=== PATIENT | male | born 1950 | race Caucasian/White ===

== ENCOUNTER 2017-01-31 10:00 | Outpatient (CLI) | payer MEDICARE ==
--- NOTE | 2017-01-31 11:57 | RAD ---
TWO VIEWS RIGHT HIP: INDICATION: Right hip pain without injury reported. FINDINGS: There is moderate osteoarthritis. There is a heterotopic density just lateral to the right hip jigar culation. Degenerative changes of the imaged sacroiliac joint and symphysis pubis present. IMPRESSION: No acute right hip fracture. Moderate osteoarthritis. POS: [facility]
== END 2017-01-31 10:01 | disposition home or self-care (01) ==
LOC: NAV RAD 10:00
PROVIDERS: ATTEND Nurse Practitioner Family
DX: M25.551 Pain in right hip (principal); M16.11 Unilateral primary osteoarthritis, right hip

== ENCOUNTER 2019-03-23 10:27 | Observation (INO) | payer MEDICARE ==
--- NOTE | 2019-03-23 10:56 | RAD ---
Exam: Chest 2 views HISTORY:Pain and cough Comparison: 10/28/2008 FINDINGS: Lungs: Focal patchy right lung base opacity is seen Cardiac silhouette: Normal size Pulmonary vessels: Normal Pleural Spaces: Clear Pneumothorax: None Osseous abnormalities: None of acuity. IMPRESSION: Focal right lung base opacity. Correlate for evidence of pneumonia. Follow-up to resoluti on is recommended.
[2019-03-23] MEDS ORDERED: Sodium Chloride 0.9% 2,000 ML ONE (11:01)
[2019-03-23] MEDS ORDERED: cefTRIAXone\\ROCEPHIN 2 GM VIAL ONE (11:01)
[2019-03-23] MEDS ORDERED: Acetaminophen 500 MG TAB ONE (11:01)
[2019-03-23] MEDS ORDERED: Sodium Chloride 0.9% 100 ML ONE (11:02)
[2019-03-23 11:11] LABS: %Lymphocytes 10.4 % (21.0-51.0); %Monocytes 5.9 % (0.0-10.0); %Neutrophils 82.7 % (42.0-75.0); Hemoglobin 13.2 g/dL (14.0-18.0); Mean Corpuscular HGB CONC 33.9 g/dL (32.0-36.0); Mean Corpuscular Hemoglobin 33.1 pg (27.0-31.0); Mean Corpuscular Volume 97.6 fL (78.0-98.0); Mean Platelet Volume 8.9 fL (7.4-10.4); Platelet Count 106 thou/uL (130-400); RBC Distribution Width 12.9 % (11.5-14.5); Red Blood Cell (RBC) Count 3.98 mill/uL (4.70-6.10); White Blood Cell (WBC) Count 12.5 thou/uL (4.8-10.8)
[2019-03-23 11:12] LABS: #Basophils 0.1 thou/uL (0.0-0.2); #Lymphocytes 1.3 thou/uL (1.20-3.40); #Monocytes 0.7 thou/uL (0.11-0.59); #Neutrophils 10.3 thou/uL (1.40-6.50); ALT (SGPT) 18 U/L (8-55); AST (SGOT) 18 U/L (5-34); Albumin 4.3 g/dL (3.4-4.8); Alkaline Phosphatase 52 U/L (40-110); Anion Gap 15 mmol/L (10-20); BUN (Urea Nitrogen) 19 mg/dL (8.4-25.7); Bilirubin, Total 0.5 mg/dL (0.2-1.2); Calc. Creatinine Clearance 0 mL/min (70-130); Calcium 8.7 mg/dL (7.8-10.44); Carbon Dioxide 19 mmol/L (23-31); Chloride 106 mmol/L (98-107); Estimated GFR-MDRD 62; Globulin 2.5 g/dL (2.4-3.5); Glucose 121 mg/dL (80-115); Lipase 10 U/L (8-78); Potassium 3.6 mmol/L (3.5-5.1); Protein, Total 6.8 g/dL (5.8-8.1); Sodium 136 mmol/L (136-145)
[2019-03-23] MEDS ORDERED: Azithromycin 500 MG VIAL ONE (11:45)
[2019-03-23] MEDS ORDERED: Sodium Chloride 0.9% 250 ML 250 ML ONE (11:46)
[2019-03-23] MEDS ORDERED: Ondansetron ODT 4 MG TAB PO PRN (12:42)
[2019-03-23 12:58] VITALS: BMI 32.8
[2019-03-23 13:08] LABS: Differential Comment SCANNED
[2019-03-23] MEDS ORDERED: Nicotine 21 MG PATCH TD SCH (14:00)
[2019-03-23] MEDS: Lactated Ringer's 1,000 ML IV SCH (16:17)
[2019-03-23] MEDS: Acetaminophen 325 MG TAB PO PRN ×2 (16:54→20:14)
[2019-03-23] MEDS ORDERED: Guaifenesin DM 100-10/5 ML UDCUP PO PRN (19:13)
--- NOTE | 2019-03-23 19:40 | HP ---
CHIEF COMPLAINT: Shortness of breath. HISTORY OF PRESENT ILLNESS: The patient is a 68-year-old male with a past medical history of COPD, seizure disorder, coronary artery disease, hyperlipidemia, and hypertension, who presented to the ER with right-sided chest and rib pain, dizziness, chills, productive cough, and wheezing that began overnight. The patient states he has been coughing for quite some time and always does. He does smoke two packs of cigarettes a day and has done so for 50 years. The patient has had increased wheezing. He does have inhalers at home but has not been using them. Upon arrival to the ER, he had a temp of a 104, and after some Tylenol, it was down to 100.8. The patient was initially hypotensive with systolics in the low 90s on arrival. His blood pressure did respond to fluid boluses. He is not currently requiring oxygen and breathing is better with neb treatments. PAST MEDICAL HISTORY: 1. COPD. 2. Seizure disorder. 3. Hyperlipidemia. 4. Coronary artery disease. 5. Hypertension. PAST SURGICAL HISTORY: 1. Appendectomy. 2. Tonsillectomy. 3. Angioplasty in 2007. 4. Knee surgery. ALLERGIES: NO KNOWN DRUG ALLERGIES. FAMILY HISTORY: 1. Grandfather with stomach cancer. 2. Mom, heart disease and pulmonary fibrosis. 3. A sibling with heart failure. SOCIAL HISTORY: The patient smokes 2packs per day and has done so for at least 50 years. He denies alcohol and other drug use. REVIEW OF SYSTEMS: GENERAL: Positive for fever, chills. EYES: Negative for vision changes or eye pain. HEENT: Negative for sore throat, rhinorrhea, or nasal congestion. RESPIRATORY: Positive for cough, shortness of breath and wheezing. CARDIOVASCULAR: Positive for right-sided chest pain that is worse with inspiration, negative for palpitations and PND. GI: Negative for nausea, vomiting, diarrhea, or constipation. : Negative for dysuria, polyuria. MUSCULOSKELETAL: Negative for new joint pain or swelling. NEUROLOGIC: Negative for syncope or recent seizure. PSYCHIATRIC: Negative for anxiety or depression. PHYSICAL EXAMINATION: VITALS SIGNS: Blood pressure is 105/59, pulse 87, respiration rate 21, O2 saturation 96% on room air. Temp 100.8. GENERAL: The patient is awake, alert, and oriented, in no acute distress. EYES: Pupils are equal, round, reactive to light and accommodation, extraocular muscles intact. HEENT: Oropharynx and nasopharynx without erythema or exudate. NECK: Supple without lymphadenopathy, thyromegaly or bruits. CARDIOVASCULAR: Regular rate and rhythm without murmurs, gallops, or rubs. LUNGS: Have diffuse wheezing in all lung chris with normal effort and no retractions. ABDOMEN: Soft, nontender to palpation with normoactive bowel sounds. MUSCULOSKELETAL: The patient has full range of motion of all extremities. Muscle strength is 5/5. NEUROLOGIC: Cranial nerves 2 through 12 are grossly intact, deep tendon reflex is 2/4. Sensation is within normal limits. PSYCHIATRIC: The patient displays appropriate mood and affect. SKIN: There are no rashes, lesions, or jaundice noted. LABORATORY DATA: 1. CBC: WBC is 12.5, hemoglobin 13.2, hematocrit 38.9, platelet count 106, neutrophils 82.7. 2. CMP: Sodium 136, potassium 3.6, chloride 106, bicarb 19, BUN 19, creatinine 1.18, glucose 121, calcium 8.7, total bilirubin 0.5, AST 18, ALT 18, alkaline phosphatase 52, total protein 6.8. 3. Troponin 0.026. 4. Lipase 10. 5. Lactic acid 1.3. 6. Influenza negative. Imaging: Chest x-ray shows right lower lobe pneumonia. ASSESSMENT AND PLAN: 1. Sepsis secondary to right lower lobe pneumonia: The patient will continue on Rocephin and azithromycin. We will add a procalcitonin and trend his white count tomorrow with a CBC. 2. Chronic obstructive pulmonary disease exacerbation: We will also give the patient steroids and scheduled nebs. He is not currently requiring oxygen. 3. Seizure disorder: Continue home medications. 4. Dehydration: The patient's blood pressure is improved with intravenous fluids. We will push oral hydration at this point. 5. Hyperlipidemia: Continue statin. 6. Deep venous thrombosis prophylaxis with Lovenox. Job ID: [id number]
[2019-03-23] MEDS: predniSONE 20 MG TAB PO SCH (20:14)
[2019-03-23] MEDS: guaiFENesin 100 MG/5 ML UDCUP PO SCH ×2 (20:14→23:32)
[2019-03-23] MEDS: carBAMazepine 200 MG TAB PO SCH (20:14)
[2019-03-24] MEDS: Lactated Ringer's 1,000 ML IV SCH (02:31)
[2019-03-24] MEDS: guaiFENesin 100 MG/5 ML UDCUP PO SCH ×2 (03:59→09:01)
[2019-03-24 05:28] LABS: Band 12 % (5-11); Hemoglobin 10.9 g/dL (14.0-18.0); Lymphocytes 24 % (21-51); MDiff Complete? YES; Mean Corpuscular HGB CONC 32.7 g/dL (32.0-36.0); Mean Corpuscular Hemoglobin 32.6 pg (27.0-31.0); Mean Corpuscular Volume 99.8 fL (78.0-98.0); Mean Platelet Volume 8.5 fL (7.4-10.4); Monocytes 4 % (0-10); Neutrophil 60 % (42-75); Platelet Count 86 thou/uL (130-400); Platelet Morphology Comment Appears Decreased; RBC Distribution Width 13.2 % (11.5-14.5); RBC Morphology Normal; Red Blood Cell (RBC) Count 3.34 mill/uL (4.70-6.10); White Blood Cell (WBC) Count 13.1 thou/uL (4.8-10.8)
[2019-03-24 05:38] LABS: Anion Gap 13 mmol/L (10-20); BUN (Urea Nitrogen) 17 mg/dL (8.4-25.7); Calc. Creatinine Clearance 71 mL/min (70-130); Calcium 7.9 mg/dL (7.8-10.44); Carbon Dioxide 22 mmol/L (23-31); Chloride 104 mmol/L (98-107); Estimated GFR-MDRD 66; Glucose 127 mg/dL (80-115); Sodium 135 mmol/L (136-145)
[2019-03-24] MEDS ORDERED: Albuterol Sulfate 2.5 mg/3 ml Neb IPPB PRN (07:51)
[2019-03-24] MEDS ORDERED: Ventolin HFA Inhaler 60 PUFF INHALER INH PRN (07:53)
[2019-03-24] MEDS ORDERED: Ezetimibe 10 MG TAB PO SCH (09:00)
[2019-03-24] MEDS ORDERED: cefTRIAXone\\ROCEPHIN 1 GM in Sodium Chloride 0.9% 100 ML IVPB SCH ×2 (09:00→11:00)
[2019-03-24] MEDS ORDERED: Atorvastatin Calcium 40 MG TAB PO SCH (09:00)
[2019-03-24] MEDS ORDERED: Aspirin 81 mg Enteric Coated Tablet PO SCH (09:00)
[2019-03-24] MEDS: Acetaminophen 325 MG TAB PO PRN (09:02)
[2019-03-24] MEDS: carBAMazepine 200 MG TAB PO SCH (09:02)
[2019-03-24] MEDS: predniSONE 20 MG TAB PO SCH (09:02)
[2019-03-24] MEDS: Enoxaparin Sodium 40 MG/0.4 ML SYRINGE SC SCH ×2 (09:05→09:07)
[2019-03-24] MEDS ORDERED: Sodium Chloride 0.9% 40 ML ONE (09:51)
[2019-03-24 09:54] VITALS: BP 123/53; TEMP 96.8
[2019-03-24] MEDS ORDERED: Azithromycin 500 MG in Sodium Chloride 0.9% 250 ML 250 ML IVPB SCH (12:00)
[2019-03-24] MEDS ORDERED: FLU VACC QS2019-20(6MOS UP)/PF 60 MCG/0.5 ML SYRINGE IM ONE (13:15)
--- NOTE | 2019-03-24 13:59 | DIS ---
DATE OF ADMISSION: 03/23/2019 DATE OF DISCHARGE: 03/24/2019 DISCHARGE DIAGNOSES: 1. Community-acquired pneumonia. 2. Dehydration. 3. Chronic obstructive pulmonary disease exacerbation. 4. Hyperlipidemia. 5. Coronary artery disease. 6. Seizure disorder. DISCHARGE MEDICATIONS: 1. Ventolin HFA 2 puffs q.4 hours p.r.n. shortness of breath, wheezing, and cough. 2. Aspirin 81 mg p.o. daily. 3. Lipitor 40 mg p.o. daily. 4. Azithromycin 250 mg p.o. daily for the next 4 days. 5. Carbamazepine 600 mg p.o. b.i.d. 6. Zetia 10 mg p.o. daily. 7. Robitussin 200 mg p.o. q.4 hours. 8. Zonisamide 300 mg p.o. daily. 9. Prednisone 20 mg p.o. b.i.d. HOSPITAL COURSE: The patient is a 68-year-old male, who was admitted for community-acquired pneumonia. He has been treated with Rocephin and azithromycin. White count remained relatively stable overnight. He is afebrile, and his blood pressure has improved. He was initially hypotensive in the ER, but this resolved with IV fluids. The patient has had significant coughing and does have rib pain near the area where his pneumonia is. The patient's O2 saturations have been stable, and he is not requiring oxygen. The patient is requesting to go home with close outpatient followup. DISPOSITION: The patient will be discharged home in stable condition. DIET: Heart-healthy. ACTIVITY: Ad selin. FOLLOWUP: The patient will follow up with me in clinic on March 26, at 12:40 p.m. The patient was given warning signs to return to the hospital. Job ID: [id number]
== END 2019-03-24 11:51 | disposition home or self-care (01) ==
LOC: NAV ERS 10:27 → NAV ACUTE 12:26
PROVIDERS: ADMIT Family Medicine; ATTEND Family Medicine
DX: A41.9 Sepsis, unspecified organism (principal); J44.0 Chronic obstructive pulmonary disease with (acute) lower respiratory infection; J18.9 Pneumonia, unspecified organism; J44.1 Chronic obstructive pulmonary disease with (acute) exacerbation; G40.909 Epilepsy, unspecified, not intractable, without status epilepticus; I25.10 Atherosclerotic heart disease of native coronary artery without angina pectoris; I10 Essential (primary) hypertension; F17.210 Nicotine dependence, cigarettes, uncomplicated; E86.0 Dehydration; E78.5 Hyperlipidemia, unspecified; Z79.899 Other long term (current) drug therapy
CPT/HCPCS: 36415; 71046; 80048; 80053; 83605; 83690; 84145; 84484; 85025; 87040; 87804; 93005; 94640; 96361; 96365; 96366; 96367; G0378; J0456; J0696; J1650; J3490; J7050; J7120; J7512; J7620; Q0162

== ENCOUNTER 2019-03-27 14:15 | Emergency (ER) | payer MEDICARE ==
[2019-03-27] MEDS ORDERED: Adenosine 6 MG/2 ML VIAL ONE (14:24)
[2019-03-27] MEDS ORDERED: Fentanyl 100 MCG/2 ML VIAL ONE (14:44)
[2019-03-27 14:46] LABS: #Basophils 0.1 thou/uL (0.0-0.2); #Lymphocytes 2.2 thou/uL (1.20-3.40); #Monocytes 0.5 thou/uL (0.11-0.59); #Neutrophils 4.5 thou/uL (1.40-6.50); %Basophils 1.5 % (0.0-1.0); %Eosinophils 0.6 % (0.0-10.0); %Lymphocytes 30.7 % (21.0-51.0); %Monocytes 6.1 % (0.0-10.0); Hemoglobin 12.3 g/dL (14.0-18.0); Mean Corpuscular HGB CONC 32.2 g/dL (32.0-36.0); Mean Corpuscular Hemoglobin 32.1 pg (27.0-31.0); Mean Corpuscular Volume 99.7 fL (78.0-98.0); Mean Platelet Volume 7.6 fL (7.4-10.4); Platelet Count 120 thou/uL (130-400); RBC Distribution Width 12.8 % (11.5-14.5); Red Blood Cell (RBC) Count 3.83 mill/uL (4.70-6.10); White Blood Cell (WBC) Count 7.3 thou/uL (4.8-10.8)
[2019-03-27] MEDS ORDERED: Ondansetron PF 4 MG/2 ML Vial ONE (14:46)
--- NOTE | 2019-03-27 14:55 | RAD ---
EXAM: Single view of the chest HISTORY: Chest pain and shortness of breath COMPARISON: 03/23/2019 FINDINGS: Single view of the chest shows an enlarged cardiomediastinal silhouette. Opacity seen in t he right lung base which may represent a pleural effusion and/or adjacent infiltrate. Degenerative changes are seen in the spine. IMPRESSION: 1. Cardiomegaly 2. Right pleural effusion versus right lower lobe infiltrate.
[2019-03-27] MEDS ORDERED: Heparin 5,000 UNITS/ML VIAL ONE (14:58)
[2019-03-27 15:07] LABS: ALT (SGPT) 476 U/L (8-55); AST (SGOT) 362 U/L (5-34); Alkaline Phosphatase 52 U/L (40-110); Anion Gap 20 mmol/L (10-20); BUN (Urea Nitrogen) 27 mg/dL (8.4-25.7); Bilirubin, Total 0.5 mg/dL (0.2-1.2); CK (CPK) 88 U/L (30-200); Calc. Creatinine Clearance 0 mL/min (70-130); Calcium 8.4 mg/dL (7.8-10.44); Carbon Dioxide 16 mmol/L (23-31); Chloride 104 mmol/L (98-107); Estimated GFR-MDRD 65; Globulin 2.7 g/dL (2.4-3.5); Glucose 140 mg/dL (80-115); Potassium 4.4 mmol/L (3.5-5.1); Protein, Total 6.7 g/dL (5.8-8.1); Sodium 136 mmol/L (136-145)
[2019-03-27] MEDS ORDERED: Diltiazem 125 MG/25 ML ONE (15:07)
[2019-03-27] MEDS ORDERED: cefTRIAXone\\ROCEPHIN 2 GM VIAL ONE (15:15)
[2019-03-27] MEDS ORDERED: Sodium Chloride 0.9% 100 ML ONE (15:15)
[2019-03-27] MEDS ORDERED: Aspirin Chewable 81 MG TAB ONE (15:17)
[2019-03-27 15:25] LABS: INR-International Normal Ratio 1.3; PTT 25.8 SEC (22.9-36.1); Prothrombin Time 15.7 SEC (12.0-14.7)
[2019-03-27 15:39] LABS: CKMB 8.1 ng/mL (0-6.6)
== END 2019-03-27 15:39 | disposition short-term general hospital (02) ==
LOC: NAV ERS 14:15
DX: I47.1 Supraventricular tachycardia (principal); I48.91 Unspecified atrial fibrillation; R79.89 Other specified abnormal findings of blood chemistry; R74.0 Nonspecific elevation of levels of transaminase and lactic acid dehydrogenase [LDH]; I10 Essential (primary) hypertension; J44.9 Chronic obstructive pulmonary disease, unspecified; E78.2 Mixed hyperlipidemia; F17.210 Nicotine dependence, cigarettes, uncomplicated; Z79.82 Long term (current) use of aspirin; Z79.899 Other long term (current) drug therapy
CPT/HCPCS: 71045; 80053; 82550; 82553; 83605; 83735; 83880; 84484; 85025; 85379; 85610; 85730; 87040; 93005; 94760; 96361; 96374; 96375; 96376; J0153; J0696; J1644; J2405; J3010; J3490

== ENCOUNTER 2019-04-09 14:18 | Emergency (ER) | payer MEDICARE ==
[~2019-04-09 14:18] MED LIST: Iopamidol 370 76% 100 ML VIAL ONE
--- NOTE | 2019-04-09 14:41 | CT ---
CT Brain WO Con: 04/09/2019 2:28 PM CLINICAL HISTORY: Fall with history of dysarthria; stroke protocol. IMAGING TECHNIQUE: Multiple CT images were obtained of the brain without IV contrast. COMPARISON: None. FINDINGS: Brain: No acute infarct or hemorrhage is evident. No midline shift. Ventricles: Normal. No hydrocephalus.. Skull: Intact.. Visualized Paranasal sinuses: There is complete opacification of the right maxillary sinusitis with t hickening of the right maxillary sinus titus. There is mucosal thickening right ethmoid air cells.. Mastoid air cells:There is a partial effusion of the right mastoid air cells. Left mastoid air cells are clear. Extracranial soft tissues:Normal. IMPRESSION: No acute intracranial abnormality. Findings called to Dr. Meadows at 2:35 PM on April 09, 2019. Chronic right maxillary sinusitis. Partial right mastoid air cell effusion.
[2019-04-09 14:50] LABS: #Basophils 0.1 thou/uL (0.0-0.2); #Eosinphils 0.1 thou/uL (0.0-0.7); #Monocytes 0.4 thou/uL (0.11-0.59); %Basophils 1.9 % (0.0-1.0); %Eosinophils 1.9 % (0.0-10.0); %Lymphocytes 44.4 % (21.0-51.0); %Monocytes 8.7 % (0.0-10.0); %Neutrophils 43.1 % (42.0-75.0); Hemoglobin 11.3 g/dL (14.0-18.0); Mean Corpuscular HGB CONC 32.4 g/dL (32.0-36.0); Mean Corpuscular Hemoglobin 31.6 pg (27.0-31.0); Mean Corpuscular Volume 97.7 fL (78.0-98.0); Mean Platelet Volume 7.8 fL (7.4-10.4); Platelet Count 154 thou/uL (130-400); Red Blood Cell (RBC) Count 3.57 mill/uL (4.70-6.10); White Blood Cell (WBC) Count 4.6 thou/uL (4.8-10.8)
[2019-04-09 14:52] LABS: INR-International Normal Ratio 1.2; PTT 30.2 SEC (22.9-36.1); Prothrombin Time 15.6 SEC (12.0-14.7)
[2019-04-09 15:01] LABS: ALT (SGPT) 84 U/L (8-55); AST (SGOT) 31 U/L (5-34); Albumin 3.6 g/dL (3.4-4.8); Alkaline Phosphatase 64 U/L (40-110); Anion Gap 15 mmol/L (10-20); BUN (Urea Nitrogen) 9 mg/dL (8.4-25.7); Bilirubin, Total 0.2 mg/dL (0.2-1.2); Calc. Creatinine Clearance 0 mL/min (70-130); Calcium 8.4 mg/dL (7.8-10.44); Carbon Dioxide 24 mmol/L (23-31); Chloride 101 mmol/L (98-107); Estimated GFR-MDRD 64; Globulin 3.4 g/dL (2.4-3.5); Glucose 95 mg/dL (80-115); Potassium 3.8 mmol/L (3.5-5.1); Sodium 136 mmol/L (136-145)
[2019-04-09 15:03] LABS: CKMB 1.9 ng/mL (0-6.6); Troponin I 0.017 ng/mL (< 0.028)
[2019-04-09] MEDS ORDERED: Meclizine HCl 25 MG TAB ONE (15:28)
--- NOTE | 2019-04-09 16:13 | CT ---
CTA OF THE HEAD AND SOFT TISSUE NECK CT: INDICATION: Stroke. COMPARISON: None. TECHNIQUE: CT angiogram of the head and neck are performed in the axial plane. Three-dimensional reformatted richie ges are submitted for interpretation. FINDINGS: CTA OF THE HEAD WITH AND WITHOUT CONTRAST: POSTCONTRAST CT OF BRAIN: Pathologic enhancement: No pathologic enhancement the brain. Postcontrast soft tissue neck CT: Sinuses: Opacification of the right maxillary sinus and partial opacification of the right ethmoid ai r cells. Orbits: Bilateral ocular lenses are appropriately located. Both globes are intact. Retrobulbar fat is preserved. Symmetric attenuation the optic nerves and ocular rectus muscles. Salivary glands:Symmetric attenuation of the parotid and submandibular glands. Thyroid gland: Grossly unremarkable. Lymph nodes: No evidence of lymphadenopathy by size criteria. Paraspinal muscles: Symmetric attenuation of the sternocleidomastoid muscles. Appropriate attenuation of the paraspinal muscles. Cervical spine:Vertebral body height is maintained. No fracture. Grade 1 anterolisthesis of C4 upon C 5. Multilevel significant central canal stenosis and significant neural foraminal narrowing. Limited evaluation by technique. Upper mediastinum and lung apices: Chronic changes of the lung parenchyma are suspected. Unremarkable upper mediastinum. CTA OF THE NECK WITH CONTRAST: Aorta: Appropriate enhancement and luminal diameter of the aortic arch and descending thoracic aorta. Right carotid artery: Right carotid artery origin, common carotid artery, carotid bifurcation and int ernal carotid artery have appropriate enhancement and luminal diameter. Left carotid: Left carotid artery origin, common carotid artery, carotid bifurcation have appropriate enhancement and luminal diameter. There is short segment severe stenosis involving the proximal left internal carotid artery with a luminal diameter of approximately 2 mm. Questionable associated f ocal ulceration. Subclavian arteries:Patent and symmetric. Vertebral arteries:The left vertebral artery originates directly from the aorta. Vertebral arteries a re patent throughout their course in the neck. Dominant left vertebral artery. CTA OF THE BRAIN: Intracranial internal carotid arteries:Appropriate enhancement and luminal diameter. Atherosclerosis without significant narrowing in both cavernous segments. Anterior circulation: Appropriate enhancement and luminal diameter of the A1 and M1 segments. Intracranial vertebral arteries: Appropriate enhancement and luminal diameter. Limited evaluation of the right PICA artery origin. Left PICA artery origin has appropriate enhancement and luminal diameter. Posterior circulation: Basilar artery has appropriate enhancement and luminal diameter. Bilateral P1 segments have appropriate enhancement and luminal diameter. IMPRESSION: 1. Unremarkable CT angiogram of the [place]. No significant stenosis or vascular occlusion. 2. Short segment high-grade stenosis involving the proximal left internal carotid artery. 3. Results of the study discussed with Dr. Victor Manuel Meadows 04/09/2019 3:25 PM. Code CR Transcribed Date/Time: 04/09/2019 3:31 PM
== END 2019-04-09 17:27 | disposition short-term general hospital (02) ==
LOC: NAV ERS 14:18
DX: G45.9 Transient cerebral ischemic attack, unspecified (principal); E78.1 Pure hyperglyceridemia; I10 Essential (primary) hypertension; J44.9 Chronic obstructive pulmonary disease, unspecified; F17.210 Nicotine dependence, cigarettes, uncomplicated; I20.9 Angina pectoris, unspecified; E78.5 Hyperlipidemia, unspecified; Z87.01 Personal history of pneumonia (recurrent); Z79.899 Other long term (current) drug therapy; Z79.82 Long term (current) use of aspirin
CPT/HCPCS: 36416; 70450; 70496; 70498; 80053; 82553; 84484; 85025; 85610; 85730; 93005; 94760; J8597; Q9967

== ENCOUNTER 2020-03-26 21:10 | Emergency (ER) | payer MEDICARE ==
[2020-03-26 21:38] LABS: Hemoglobin 11.9 g/dL (14.0-18.0); Mean Corpuscular HGB CONC 32.4 g/dL (32.0-36.0); Mean Corpuscular Hemoglobin 35.6 pg (27.0-31.0); Mean Platelet Volume 8.3 fL (7.4-10.4); Platelet Count 124 thou/uL (130-400); RBC Distribution Width 13.5 % (11.5-14.5); Red Blood Cell (RBC) Count 3.34 mill/uL (4.70-6.10); White Blood Cell (WBC) Count 7.6 thou/uL (4.8-10.8)
[2020-03-26 21:50] LABS: #Basophils 0.2 thou/uL (0.0-0.2); #Eosinphils 0.1 thou/uL (0.0-0.7); #Lymphocytes 0.9 thou/uL (1.20-3.40); #Monocytes 0.5 thou/uL (0.11-0.59); %Basophils 2.5 % (0.0-1.0); %Eosinophils 0.7 % (0.0-10.0); %Lymphocytes 12.2 % (21.0-51.0); %Monocytes 6.2 % (0.0-10.0); %Neutrophils 78.4 % (42.0-75.0)
[2020-03-26 21:51] LABS: MDiff Complete? YES; Macrocytosis SLIGHT = 6-15 cells (100X) (0-5/hpf); Platelet Morphology Comment Appears Decreased
[2020-03-26 21:55] LABS: ALT (SGPT) 21 U/L (8-55); AST (SGOT) 18 U/L (5-34); Alkaline Phosphatase 54 U/L (40-110); Anion Gap 17 mmol/L (10-20); BUN (Urea Nitrogen) 22 mg/dL (8.4-25.7); Bilirubin, Total 0.1 mg/dL (0.2-1.2); Calc. Creatinine Clearance 0 mL/min (70-130); Carbon Dioxide 29 mmol/L (23-31); Chloride 96 mmol/L (98-107); Globulin 3.2 g/dL (2.4-3.5); Glucose 130 mg/dL (80-115); Potassium 4.8 mmol/L (3.5-5.1); Protein, Total 7.2 g/dL (5.8-8.1); Sodium 137 mmol/L (136-145)
--- NOTE | 2020-03-26 21:57 | RAD ---
RADIOGRAPH CHEST 1 VIEW: DATE: 03/26/2020 HISTORY: 69-year-old male with chest pain and dyspnea FINDINGS: There are no airspace densities, pulmonary edema, pneumothorax, or cardiomegaly. The lateral costophr enic angles are sharp. IMPRESSION: No acute cardiopulmonary findings.
[2020-03-26 22:21] LABS: CKMB 11.9 ng/mL (0-6.6)
[2020-03-26] MEDS ORDERED: Aspirin Chewable 81 MG TAB ONE (22:33)
[2020-03-26] MEDS ORDERED: Enoxaparin Sodium 100 MG/ML SYRINGE ONE (22:33)
[2020-03-26] MEDS ORDERED: methylPREDNISolone Sod Succ/PF 125 MG/2 ML VIAL ONE (22:33)
[2020-03-26] MEDS ORDERED: Ventolin HFA Inhaler 60 PUFF INHALER ONE (22:33)
[2020-03-27 00:12] LABS: SARS-CoV-2 NAA Rapid Test Not Detected (NotDetected)
[2020-03-27] MEDS ORDERED: Lorazepam 2 MG/ML VIAL ONE (01:42)
[2020-03-27] MEDS ORDERED: Midazolam HCl 5 mg/ml Vial ONE ×2 (02:34→02:35)
--- NOTE | 2020-03-27 08:15 | CT ---
PRELIMINARY REPORT/[facility]/EMERGENCY AFTER HOURS PROCEDURE EXAM: CT Head Without Intravenous Contrast. CLINICAL HISTORY: PLEASE COMPARE WITH PRIOR IMAGES FROM 04/09/2019 FAMILY REPORTS THAT PATIENT NORMALLY HAS SLURRED SP EECH BUT HAS BEEN GETTING WORSE IN THE LAST HOUR WITH INCREASING DISORIENTATION. TECHNIQUE: Axial computed tomography images of the head/brain without intravenous contrast. COMPARISON: CT\SR - CT BRAIN WO CON - 04/09/2019 02:27 PM PRODUCT TEST ENGINEER FINDINGS: BRAIN: No acute intraparenchymal hemorrhage. No mass lesion. No CT evidence for acute territorial infarct. N o midline shift or extra-axial collection. VENTRICLES: No hydrocephalus. ORBITS: The orbits are unremarkable. SINUSES AND MASTOIDS: The paranasal sinuses and mastoid air cells are clear. SOFT TISSUES: No significant facial or scalp soft tissue swelling evident. No radiopaque foreign body is seen. BONES: No acute skull fracture. IMPRESSION: No acute intracranial abnormality. ELECTRONICALLY SIGNED BY: Racquel Alejandro MD Mar 27, 2020 2:25:45 AM PRODUCT TEST ENGINEER This report is intended for review by the ordering physician only, in accordance of law. If you recei ve this report in error, please call [facility] at [phone]. FINAL REPORT Exam: Head CT without contrast HISTORY: Syncope. Slurred speech has worsened. COMPARISON: 04/09/2019 FINDINGS: Hemorrhage: No intraparenchymal hemorrhage or extra-axial hematoma. Brain parenchyma: Cortical english-white matter differentiation is preserved. No mass effect or midline shift. Basilar cisterns are patent. Ventricular system: Ventricles and sulci are patent and symmetric. Calvarium: Intact. Sinuses and mastoid air cells: Adequate aeration. IMPRESSION: 1. This report is in agreement with initial report by [facility]. 2. No acute intracranial process. Transcribed Date/Time: 03/27/2020 9:04 AM
--- NOTE | 2020-03-27 09:13 | RAD ---
Chest AP view INDICATION: History of dyspnea status post intubation COMPARISON: Prior exam dated March 26, 2020 FINDINGS: Lungs: Chronic lung changes are stable. No acute airspace opacity is noted. Cardiac silhouette: The cardiomediastinal silhouette appears within normal limits. Pulmonary vasculature: Normal Pleural spaces: No pleural effusion or pneumothorax is demonstrated. Upper abdomen: No abnormality seen. Osseous structures: No acute osseous abnormality. Additional findings: Patient is not intubated. The ET tube tip seen 6 cm above the level of jeronimo. No pneumothorax. IMPRESSION: Interval intubation. No acute airspace opacity, pleural effusion or pneumothorax is demonstrated. Chr onic lung changes are stable.
== END 2020-03-27 03:45 | disposition short-term general hospital (02) ==
LOC: NAV ERS 21:10
DX: R09.02 Hypoxemia (principal); R06.02 Shortness of breath; R07.9 Chest pain, unspecified; E78.5 Hyperlipidemia, unspecified; E78.00 Pure hypercholesterolemia, unspecified; J44.9 Chronic obstructive pulmonary disease, unspecified; F17.210 Nicotine dependence, cigarettes, uncomplicated; Z79.82 Long term (current) use of aspirin; Z79.51 Long term (current) use of inhaled steroids; Z79.899 Other long term (current) drug therapy
CPT/HCPCS: 0240U; 31500; 51702; 70450; 71045; 80053; 82553; 83605; 83880; 84484; 85025; 85379; 87040; 93005; 96372; 96374; 96375; 99292; J1650; J2060; J2250; J2930; J7620

== ENCOUNTER 2021-03-08 21:43 | Emergency (ER) | payer MEDICARE ==
[2021-03-08] MEDS ORDERED: Sodium Chloride 0.9% 1,000 ML ONE (22:28)
[2021-03-08 22:35] LABS: White Blood Cell (WBC) Count 7.9 thou/uL (4.8-10.8)
[2021-03-08 22:36] LABS: #Basophils 0.2 thou/uL (0.0-0.2); #Eosinphils 0.2 thou/uL (0.0-0.7); #Lymphocytes 2.3 thou/uL (1.20-3.40); #Monocytes 0.7 thou/uL (0.11-0.59); #Neutrophils 4.5 thou/uL (1.40-6.50); %Eosinophils 1.9 % (0.0-10.0); %Lymphocytes 29.7 % (21.0-51.0); %Monocytes 9.1 % (0.0-10.0); %Neutrophils 57.3 % (42.0-75.0); Hemoglobin 9.6 g/dL (14.0-18.0); Manual Diff?? NO; Mean Corpuscular HGB CONC 31.3 g/dL (32.0-36.0); Mean Corpuscular Hemoglobin 37.5 pg (27.0-31.0); Mean Platelet Volume 6.4 fL (7.4-10.4); Platelet Count 125 thou/uL (130-400); RBC Distribution Width 14.5 % (11.5-14.5); Red Blood Cell (RBC) Count 2.56 mill/uL (4.70-6.10)
[2021-03-08 22:40] LABS: ALT (SGPT) 9 U/L (8-55); AST (SGOT) 10 U/L (5-34); Albumin 4.2 g/dL (3.4-4.8); Alkaline Phosphatase 46 U/L (40-110); Anion Gap 12 mmol/L (10-20); BUN (Urea Nitrogen) 20 mg/dL (8.4-25.7); Base Excess-Venous 1.8 mmol/L (-2.0 to 3.0); Bilirubin, Total 0.3 mg/dL (0.2-1.2); CO2 Tension (PvCO2) 50.4 mmHg (42.0-51.0); Calc. Creatinine Clearance 0 mL/min (70-130); Calcium 9.2 mg/dL (7.8-10.44); Carbon Dioxide 28 mmol/L (23-31); Chloride 104 mmol/L (98-107); Globulin 3.3 g/dL (2.4-3.5); Glucose 118 mg/dL (80-115); Potassium 3.7 mmol/L (3.5-5.1); Protein, Total 7.5 g/dL (5.8-8.1); Sodium 140 mmol/L (136-145); Sodium 145 mmol/L (138-145); vO2 Saturation-calc 65.7 % (60.0-85.0)
[2021-03-08 22:41] LABS: Calcium, Ionized 1.15 mmol/L (1.15-1.33); Chloride 107 mmol/L (98-107); T. Carbon Dioxide 29.5 mmol/L (22.0-28.0)
[2021-03-08] MEDS ORDERED: methylPREDNISolone Sod Succ/PF 125 MG/2 ML VIAL ONE (22:52)
[2021-03-08 23:11] LABS: SARS-CoV-2 NAA Rapid Test Not Detected (NotDetected)
== END 2021-03-08 23:29 | disposition home or self-care (01) ==
LOC: NAV ERS 21:43
DX: J20.9 Acute bronchitis, unspecified (principal); Z20.822 Contact with and (suspected) exposure to COVID-19; J44.9 Chronic obstructive pulmonary disease, unspecified; E78.2 Mixed hyperlipidemia; I10 Essential (primary) hypertension; Z79.899 Other long term (current) drug therapy; Z79.01 Long term (current) use of anticoagulants; Z79.82 Long term (current) use of aspirin
CPT/HCPCS: 0240U; 71045; 80053; 82330; 82435; 82803; 83605; 83880; 84132; 84295; 84484; 85014; 85025; 85379; 87040; 87081; 87205; 87430; 93005; 94640 ×2; 36415; 87070; 96374; J2930; J7050; J7620

== ENCOUNTER 2021-08-29 11:56 | Emergency (ER) | payer MEDICARE ==
[2021-08-29 12:45] LABS: #Basophils 0.1 thou/uL (0.0-0.2); #Eosinphils 0.1 thou/uL (0.0-0.7); #Lymphocytes 1.3 thou/uL (1.20-3.40); #Monocytes 0.4 thou/uL (0.11-0.59); #Neutrophils 4.1 thou/uL (1.40-6.50); %Basophils 1.7 % (0.0-1.0); %Eosinophils 1.2 % (0.0-10.0); %Lymphocytes 21.2 % (21.0-51.0); Hemoglobin 8.7 g/dL (14.0-18.0); Mean Corpuscular HGB CONC 29.6 g/dL (32.0-36.0); Mean Platelet Volume 10.7 fL (7.4-10.4); Platelet Count 106 thou/uL (130-400)
[2021-08-29 12:49] LABS: ALT (SGPT) 10 U/L (8-55); AST (SGOT) 12 U/L (5-34); Albumin 3.9 g/dL (3.4-4.8); Alkaline Phosphatase 50 U/L (40-110); Anion Gap 16 mmol/L (10-20); BUN (Urea Nitrogen) 20 mg/dL (8.4-25.7); Bilirubin, Total 0.3 mg/dL (0.2-1.2); Calc. Creatinine Clearance 0 mL/min (70-130); Carbon Dioxide 21 mmol/L (23-31); Chloride 107 mmol/L (98-107); Globulin 2.8 g/dL (2.4-3.5); Glucose 221 mg/dL (80-115); Magnesium 2.2 mg/dL (1.6-2.6); Potassium 4.3 mmol/L (3.5-5.1); Protein, Total 6.7 g/dL (5.8-8.1); Sodium 140 mmol/L (136-145)
[2021-08-29] MEDS ORDERED: methylPREDNISolone Sod Succ/PF 125 MG/2 ML VIAL ONE ×2 (12:51)
[2021-08-29] MEDS ORDERED: Amoxicillin/Potassium Clav 875 MG TAB ONE (13:49)
[2021-08-29] MEDS ORDERED: Furosemide 20 MG/2 ML VIAL ONE (13:49)
[2021-08-29 14:30] LABS: SARS-CoV-2 NAA Rapid Test Not Detected (NotDetected)
== END 2021-08-29 14:00 | disposition short-term general hospital (02) ==
LOC: NAV ERS 11:56
DX: J44.1 Chronic obstructive pulmonary disease with (acute) exacerbation (principal); I11.0 Hypertensive heart disease with heart failure; I50.9 Heart failure, unspecified; R47.81 Slurred speech; R29.700 NIHSS score 0; G40.909 Epilepsy, unspecified, not intractable, without status epilepticus; E78.2 Mixed hyperlipidemia; Z86.73 Personal history of transient ischemic attack (TIA), and cerebral infarction without residual deficits; Z87.891 Personal history of nicotine dependence; Z79.899 Other long term (current) drug therapy; Z79.82 Long term (current) use of aspirin; Z79.01 Long term (current) use of anticoagulants; Z20.822 Contact with and (suspected) exposure to COVID-19
CPT/HCPCS: 70450; 71045; 80053; 83735; 83880; 84484; 85025; 93005; 94640; 94760; 96374; 96375; 99285; U0002; J1940; J2930; J7620

== ENCOUNTER 2021-11-21 00:10 | Emergency (ER) | payer MEDICARE ==
[2021-11-21] MEDS ORDERED: Nitroglycerin 0.4 MG TAB (25 Tab Bottle) ONE (00:35)
[2021-11-21 00:43] LABS: #Basophils 0.1 thou/uL (0.0-0.2); #Lymphocytes 1.5 thou/uL (1.20-3.40); #Monocytes 0.5 thou/uL (0.11-0.59); #Neutrophils 3.9 thou/uL (1.40-6.50); %Basophils 1.9 % (0.0-1.0); %Eosinophils 0.8 % (0.0-10.0); %Lymphocytes 25.2 % (21.0-51.0); %Neutrophils 64.2 % (42.0-75.0); Hemoglobin 8.6 g/dL (14.0-18.0); Mean Corpuscular HGB CONC 30.2 g/dL (32.0-36.0); Mean Platelet Volume 7.8 fL (7.4-10.4); Platelet Count 114 thou/uL (130-400); RBC Distribution Width 14.6 % (11.5-14.5); Red Blood Cell (RBC) Count 2.38 mill/uL (4.70-6.10)
[2021-11-21 00:46] LABS: Anisocytosis MODERATE=16-30 cells (100X) (0-5/hpf); Hypochromia MODERATE=16-30 cells (100X) (0-5/hpf); Microcytosis MODERATE=15-30 cells (100X) (0-5/hpf); Platelet Morphology Comment Appears Decreased
[2021-11-21] MEDS ORDERED: Nitroglycerin 2% Ointment 1 INCH/1 GM Packet ONE (01:04)
[2021-11-21] MEDS ORDERED: Fentanyl 100 MCG/2 ML VIAL ONE (01:05)
[2021-11-21 01:11] LABS: ALT (SGPT) 12 U/L (8-55); AST (SGOT) 11 U/L (5-34); Albumin 4.3 g/dL (3.4-4.8); Alkaline Phosphatase 54 U/L (40-110); Anion Gap 14 mmol/L (10-20); BUN (Urea Nitrogen) 24 mg/dL (8.4-25.7); Bilirubin, Total 0.4 mg/dL (0.2-1.2); Calc. Creatinine Clearance 0 mL/min (70-130); Calcium 9.1 mg/dL (7.8-10.44); Carbon Dioxide 29 mmol/L (23-31); Chloride 103 mmol/L (98-107); Estimated GFR 52; Glucose 192 mg/dL (80-115); Lipase 23 U/L (8-78); Potassium 4.2 mmol/L (3.5-5.1); Protein, Total 7.3 g/dL (5.8-8.1); Sodium 142 mmol/L (136-145)
[2021-11-21 01:57] LABS: SARS-CoV-2 NAA Rapid Test Not Detected (NotDetected)
== END 2021-11-21 02:00 | disposition short-term general hospital (02) ==
LOC: NAV ERS 00:10
DX: I25.10 Atherosclerotic heart disease of native coronary artery without angina pectoris (principal); I25.2 Old myocardial infarction; E78.5 Hyperlipidemia, unspecified; I10 Essential (primary) hypertension; Z87.891 Personal history of nicotine dependence; Z79.899 Other long term (current) drug therapy
CPT/HCPCS: 71045; 80053; 83690; 84484; 85025; 93005; 96374; 99285; U0002; J3010

== ENCOUNTER 2022-01-05 11:26 | Outpatient (CLI) | payer MEDICARE | END 2022-01-05 11:27 | disposition home or self-care (01) | LOC: NAV RAD 11:26 | PROVIDERS: ATTEND Nurse Practitioner Family | DX: J44.1 Chronic obstructive pulmonary disease with (acute) exacerbation (principal); J84.9 Interstitial pulmonary disease, unspecified; I51.7 Cardiomegaly | CPT/HCPCS: 71046 ==

== ENCOUNTER 2022-03-27 11:26 | Emergency (ER) | payer MEDICARE ==
[2022-03-27] MEDS ORDERED: methylPREDNISolone Sod Succ/PF 125 MG/2 ML VIAL ONE (11:54)
[2022-03-27 12:06] LABS: Hemoglobin 9.3 g/dL (14.0-18.0); Mean Corpuscular HGB CONC 32.8 g/dL (32.0-36.0); Mean Corpuscular Hemoglobin 38.2 pg (27.0-31.0); Mean Platelet Volume 9.3 fL (7.4-10.4); Platelet Count 151 10x3/uL (130-400); Red Blood Cell (RBC) Count 2.45 mill/uL (4.70-6.10); White Blood Cell (WBC) Count 6.9 10x3/uL (4.8-10.8)
[2022-03-27 12:12] LABS: MDiff Complete? YES; Manual Diff?? YES
[2022-03-27 12:14] LABS: ALT (SGPT) 13 U/L (8-55); AST (SGOT) 14 U/L (5-34); Albumin 4.2 g/dL (3.4-4.8); Alkaline Phosphatase 63 U/L (40-110); Anion Gap 14 mmol/L (10-20); BUN (Urea Nitrogen) 11 mg/dL (8.4-25.7); Bilirubin, Total 0.4 mg/dL (0.2-1.2); Calc. Creatinine Clearance 0 mL/min (70-130); Calcium 8.2 mg/dL (7.8-10.44); Carbon Dioxide 25 mmol/L (23-31); Chloride 104 mmol/L (98-107); Estimated GFR 59; Globulin 3.1 g/dL (2.4-3.5); Glucose 151 mg/dL (80-115); Protein, Total 7.3 g/dL (5.8-8.1); Sodium 139 mmol/L (136-145)
[2022-03-27 12:21] LABS: Band 2 % (5-11); Eosinophils 3 % (0-10); Lymphocytes 14 % (21-51); Monocytes 14 % (0-10); Neutrophil 64 % (42-75); Reactive Lymphocytes 3 % (0-10)
[2022-03-27 12:22] LABS: Anisocytosis SLIGHT = 6-15 cells (100X) (0-5/hpf); Elliptocytes SLIGHT = 2-5 cells (100X) (0-1/hpf); Hypochromia SLIGHT = 6-15 cells (100X) (0-5/hpf); Macrocytosis SLIGHT = 6-15 cells (100X) (0-5/hpf); Microcytosis SLIGHT = 6-15 cells (100X) (0-5/hpf); Platelet Morphology Comment Appears Adequate
[2022-03-27 12:23] LABS: Base Excess-Venous 0.5 mmol/L (-2.0 to 3.0); Bicarbonate (HCO3v) 26.2 mmol/L (22.0-28.0); CO2 Tension (PvCO2) 46.4 mmHg (42.0-51.0); Calcium, Ionized 1.05 mmol/L (1.15-1.33); Chloride 105 mmol/L (98-107); Hemoglobin - Calc 9.7 g/dL (14.0-18.0); Potassium 4.6 mmol/L (3.5-5.1); Sodium 139 mmol/L (138-145); T. Carbon Dioxide 27.6 mmol/L (22.0-28.0); vO2 Saturation-calc 84.1 % (60.0-85.0)
[2022-03-27 12:30] LABS: CKMB 5.3 ng/mL (0-6.6)
[2022-03-27] MEDS ORDERED: cefTRIAXone\\ROCEPHIN 1 GM VIAL ONE (12:59)
[2022-03-27] MEDS ORDERED: Sodium Chloride 0.9% 100 ML ONE (12:59)
== END 2022-03-27 13:57 | disposition home or self-care (01) ==
LOC: NAV ERS 11:26
DX: J44.1 Chronic obstructive pulmonary disease with (acute) exacerbation (principal); E78.5 Hyperlipidemia, unspecified; I11.0 Hypertensive heart disease with heart failure; I50.9 Heart failure, unspecified; G40.909 Epilepsy, unspecified, not intractable, without status epilepticus; Z79.01 Long term (current) use of anticoagulants; Z79.82 Long term (current) use of aspirin; Z79.899 Other long term (current) drug therapy; Z87.891 Personal history of nicotine dependence
CPT/HCPCS: 71045; 80053; 82330; 82553; 82803; 83880; 84484; 85014; 85025; 87804; 93005; 96374; 96375; J0696; J2930; J3490; J7620

== ENCOUNTER 2022-04-08 11:56 | Emergency (ER) | payer MEDICARE ==
[2022-04-08] MEDS ORDERED: Ipratropium/Albuterol 3 ML NEB ONE ×2 (12:23→19:16)
[2022-04-08] MEDS ORDERED: methylPREDNISolone Sod Succ/PF 125 MG/2 ML VIAL ONE (12:23)
[2022-04-08 12:31] LABS: Hemoglobin 9.5 g/dL (14.0-18.0); Mean Corpuscular HGB CONC 32.1 g/dL (32.0-36.0); Mean Platelet Volume 8.7 fL (7.4-10.4); Platelet Count 127 10x3/uL (130-400); RBC Distribution Width 14.7 % (11.5-14.5); White Blood Cell (WBC) Count 6.8 10x3/uL (4.8-10.8)
[2022-04-08 12:32] LABS: MDiff Complete? YES; Manual Diff?? YES
[2022-04-08 12:35] LABS: Toxic Granulation SLIGHT; Vacuoles SLIGHT
[2022-04-08 12:36] LABS: Elliptocytes SLIGHT = 2-5 cells (100X) (0-1/hpf); Large Platelets SLIGHT; Macrocytosis SLIGHT = 6-15 cells (100X) (0-5/hpf); Platelet Morphology Comment Appears Adequate
[2022-04-08 12:40] LABS: Band 4 % (5-11); Eosinophils 1 % (0-10); Lymphocytes 19 % (21-51); Monocytes 8 % (0-10); Neutrophil 67 % (42-75); Reactive Lymphocytes 1 % (0-10)
[2022-04-08 12:45] LABS: ALT (SGPT) 17 U/L (8-55); AST (SGOT) 16 U/L (5-34); Alkaline Phosphatase 53 U/L (40-110); Anion Gap 12 mmol/L (10-20); BUN (Urea Nitrogen) 19 mg/dL (8.4-25.7); Bilirubin, Total 0.4 mg/dL (0.2-1.2); Calc. Creatinine Clearance 0 mL/min (70-130); Calcium 8.4 mg/dL (7.8-10.44); Carbon Dioxide 23 mmol/L (23-31); Chloride 105 mmol/L (98-107); Estimated GFR 67; Globulin 2.7 g/dL (2.4-3.5); Glucose 249 mg/dL (80-115); Potassium 4.5 mmol/L (3.5-5.1); Protein, Total 6.7 g/dL (5.8-8.1); Sodium 135 mmol/L (136-145)
[2022-04-08 13:19] LABS: SARS-CoV-2 NAA Rapid Test Not Detected (NotDetected)
[2022-04-08] MEDS ORDERED: Magnesium 2 GM/50 ML BAG (IN WATER) ONE (13:40)
== END 2022-04-08 19:27 | disposition short-term general hospital (02) ==
LOC: NAV ERS 11:56
DX: J96.01 Acute respiratory failure with hypoxia (principal); J44.1 Chronic obstructive pulmonary disease with (acute) exacerbation; Z20.822 Contact with and (suspected) exposure to COVID-19; I25.2 Old myocardial infarction; I11.0 Hypertensive heart disease with heart failure; I50.9 Heart failure, unspecified; E78.5 Hyperlipidemia, unspecified; Z87.891 Personal history of nicotine dependence; Z79.899 Other long term (current) drug therapy
CPT/HCPCS: 36415; 71045; 80053; 84484; 85025; 93005; 96365; 96366; 96367; 96375; J1956; J2930; J3475; J7620

== ENCOUNTER 2022-06-18 10:23 | Emergency (ER) | payer MEDICARE ==
[2022-06-18] MEDS ORDERED: Aspirin Chewable 81 MG TAB ONE (10:54)
[2022-06-18] MEDS ORDERED: Ipratropium/Albuterol 3 ML NEB ONE ×2 (10:55→11:35)
[2022-06-18 11:14] LABS: #Basophils 0.1 thou/uL (0.0-0.2); #Eosinphils 0.1 thou/uL (0.0-0.7); #Lymphocytes 1.2 thou/uL (1.20-3.40); #Monocytes 0.4 thou/uL (0.11-0.59); #Neutrophils 3.2 thou/uL (1.40-6.50); %Basophils 1.8 % (0.0-1.0); %Eosinophils 1.5 % (0.0-10.0); %Lymphocytes 23.7 % (21.0-51.0); %Monocytes 8.6 % (0.0-10.0); %Neutrophils 64.3 % (42.0-75.0); Hemoglobin 9.8 g/dL (14.0-18.0); Mean Corpuscular HGB CONC 32.7 g/dL (32.0-36.0); Mean Corpuscular Hemoglobin 38.2 pg (27.0-31.0); Mean Platelet Volume 8.2 fL (7.4-10.4); Platelet Count 166 10x3/uL (130-400); RBC Distribution Width 14.3 % (11.5-14.5); Red Blood Cell (RBC) Count 2.56 mill/uL (4.70-6.10)
[2022-06-18 11:18] LABS: ALT (SGPT) 15 U/L (8-55); AST (SGOT) 12 U/L (5-34); Albumin 4.2 g/dL (3.4-4.8); Alkaline Phosphatase 48 U/L (40-110); Anion Gap 14 mmol/L (10-20); BUN (Urea Nitrogen) 16 mg/dL (8.4-25.7); Bilirubin, Total 0.3 mg/dL (0.2-1.2); Calc. Creatinine Clearance 0 mL/min (70-130); Calcium 8.5 mg/dL (7.8-10.44); Carbon Dioxide 23 mmol/L (23-31); Chloride 106 mmol/L (98-107); Estimated GFR 60; Globulin 2.7 g/dL (2.4-3.5); Glucose 283 mg/dL (80-115); Lipase 30 U/L (8-78); Magnesium 2.1 mg/dL (1.6-2.6); Potassium 4.2 mmol/L (3.5-5.1); Protein, Total 6.9 g/dL (5.8-8.1); Sodium 139 mmol/L (136-145)
[2022-06-18] MEDS ORDERED: methylPREDNISolone Sod Succ/PF 125 MG/2 ML VIAL ONE ×2 (11:39)
== END 2022-06-18 13:05 | disposition short-term general hospital (02) ==
LOC: NAV ERS 10:23
DX: J44.1 Chronic obstructive pulmonary disease with (acute) exacerbation (principal); E78.5 Hyperlipidemia, unspecified; G40.909 Epilepsy, unspecified, not intractable, without status epilepticus; I11.0 Hypertensive heart disease with heart failure; I50.9 Heart failure, unspecified; Z87.891 Personal history of nicotine dependence; Z79.01 Long term (current) use of anticoagulants; Z79.899 Other long term (current) drug therapy
CPT/HCPCS: 71045; 80053; 83690; 83735; 83880; 84484; 85025; 93005; 94760; 96374; J2930; J7620

== ENCOUNTER 2022-11-27 12:42 | Emergency (ER) | payer OTHER, MEDICARE ==
[2022-11-27] MEDS ORDERED: Morphine 4 MG/ML VIAL ONE (13:44)
[2022-11-27] MEDS ORDERED: Ondansetron ODT 4 MG TAB ONE (13:44)
== END 2022-11-27 18:30 | disposition home or self-care (01) ==
LOC: NAV ERS 12:42
DX: S22.31XA Fracture of one rib, right side, initial encounter for closed fracture (principal); I11.0 Hypertensive heart disease with heart failure; I50.9 Heart failure, unspecified; J44.9 Chronic obstructive pulmonary disease, unspecified; Z79.899 Other long term (current) drug therapy; Z79.01 Long term (current) use of anticoagulants; Z87.891 Personal history of nicotine dependence; W01.10XA Fall on same level from slipping, tripping and stumbling with subsequent striking against unspecified object, initial encounter
CPT/HCPCS: 36416; 71045; 71110; 96372; J2270; Q0162

== ENCOUNTER 2022-12-05 14:32 | Inpatient (IN) | payer MEDICARE ==
[2022-12-05] MEDS ORDERED: Dextrose 50% Abboject 50 ML SYRINGE SLOW IVP PRN (15:37)
[2022-12-05] MEDS ORDERED: Glucagon 1 MG/ML KIT IM PRN (15:37)
[2022-12-05] MEDS ORDERED: Acetaminophen 650 MG Suppository PR PRN (15:38)
[2022-12-05] MEDS ORDERED: HumaLOG 300 UNITS/3 ML VIAL SC PRN (15:38)
[2022-12-05] MEDS ORDERED: cloNIDine 0.1 MG TAB PO PRN (15:38)
[2022-12-05] MEDS ORDERED: Bisacodyl 10 MG SUPP PR PRN (15:38)
[2022-12-05] MEDS ORDERED: Calcium Carbonate 500 MG ChewTAB PO PRN (15:38)
[2022-12-05] MEDS ORDERED: Bisacodyl 5 MG TAB PO PRN (15:38)
[2022-12-05] MEDS ORDERED: Artificial Tear Sol 15 ML BOT EA EYE PRN (15:38)
[2022-12-05] MEDS ORDERED: Benzocaine/Menthol 1 LOZ LOZ PO PRN (15:38)
[2022-12-05] MEDS ORDERED: Senokot S 8.6-50 MG TAB PO PRN (15:38)
[2022-12-05] MEDS ORDERED: Sodium Chloride 0.65% Nasal 44 ML BOT EA NARE PRN (15:38)
[2022-12-05] MEDS ORDERED: Benzonatate 100 MG CAP PO PRN (15:38)
[2022-12-05] MEDS: Mometasone/Formoterol 200/5 60 PUFF INH SCH (18:17)
[2022-12-05] MEDS: Ipratropium/Albuterol 3 ML NEB NEB SCH (18:19)
[2022-12-05] MEDS: carBAMazepine 200 MG TAB PO SCH (20:49)
[2022-12-05] MEDS: Dronedarone HCl 400 MG TAB PO SCH (20:50)
[2022-12-05] MEDS: Famotidine 20 MG TAB PO SCH (20:50)
[2022-12-05] MEDS: ZONISAMIDE 100 MG PO SCH (20:50)
[2022-12-05] MEDS: Atorvastatin Calcium 40 MG TAB PO SCH (20:51)
[2022-12-05] MEDS: Enoxaparin 120 MG/0.8 ML SYRINGE SC SCH (20:51)
[2022-12-05] MEDS: Benzonatate 100 MG CAP PO SCH (20:51)
[2022-12-05] MEDS: Gabapentin 300 MG CAP PO SCH (20:51)
[2022-12-06] MEDS: Mometasone/Formoterol 200/5 60 PUFF INH SCH ×2 (06:01→18:00)
[2022-12-06 06:04] LABS: Hematocrit 28.1 % (42.0-52.0); Red Blood Cell (RBC) Count 2.53 mill/uL (4.70-6.10); White Blood Cell (WBC) Count 6.4 10x3/uL (4.8-10.8)
[2022-12-06 06:05] LABS: #Basophils 0.4 thou/uL (0.0-0.2); #Lymphocytes 1.6 thou/uL (1.20-3.40); #Monocytes 0.5 thou/uL (0.11-0.59); #Neutrophils 3.9 thou/uL (1.40-6.50); %Basophils 6.2 % (0.0-1.0); %Eosinophils 0.2 % (0.0-10.0); %Monocytes 7.2 % (0.0-10.0); %Neutrophils 61.5 % (42.0-75.0); Mean Corpuscular HGB CONC 32.1 g/dL (32.0-36.0); Mean Corpuscular Hemoglobin 35.5 pg (27.0-31.0); Mean Platelet Volume 8.7 fL (7.4-10.4); Platelet Count 159 10x3/uL (130-400); RBC Distribution Width 16.5 % (11.5-14.5)
[2022-12-06] MEDS: Ipratropium/Albuterol 3 ML NEB NEB SCH ×4 (06:16→17:55)
[2022-12-06 06:24] LABS: AST (SGOT) 18 U/L (5-34); Albumin 3.8 g/dL (3.4-4.8); Alkaline Phosphatase 51 U/L (40-110); Anion Gap 15 mmol/L (10-20); BUN (Urea Nitrogen) 23 mg/dL (8.4-25.7); Bilirubin, Total 0.5 mg/dL (0.2-1.2); Calc. Creatinine Clearance 89 mL/min (70-130); Carbon Dioxide 31 mmol/L (23-31); Chloride 95 mmol/L (98-107); Estimated GFR 63; Globulin 3.2 g/dL (2.4-3.5); Glucose 125 mg/dL (80-115); Potassium 3.9 mmol/L (3.5-5.1); Sodium 137 mmol/L (136-145)
[2022-12-06] MEDS: metFORMIN 500 MG TAB PO SCH ×2 (07:37→16:52)
[2022-12-06] MEDS: Acetaminophen 325 MG TAB PO PRN (08:13)
[2022-12-06] MEDS: Enoxaparin 120 MG/0.8 ML SYRINGE SC SCH ×2 (08:16→20:53)
[2022-12-06] MEDS: Folic Acid 1 MG TAB PO SCH (08:17)
[2022-12-06] MEDS: carBAMazepine 200 MG TAB PO SCH ×2 (08:17→20:53)
[2022-12-06] MEDS: Gabapentin 300 MG CAP PO SCH ×3 (08:17→20:53)
[2022-12-06] MEDS: Dronedarone HCl 400 MG TAB PO SCH ×2 (08:17→20:53)
[2022-12-06] MEDS: Ezetimibe 10 MG TAB PO SCH (08:17)
[2022-12-06] MEDS: Benzonatate 100 MG CAP PO SCH ×3 (08:17→20:53)
[2022-12-06] MEDS: Famotidine 20 MG TAB PO SCH ×2 (08:18→20:53)
[2022-12-06] MEDS: Amlodipine 5 MG TAB PO SCH (08:18)
[2022-12-06] MEDS: Empagliflozin 10 MG TAB PO SCH (08:19)
[2022-12-06] MEDS: ZONISAMIDE 100 MG PO SCH ×3 (08:19→22:06)
[2022-12-06] MEDS: Torsemide 20 MG TAB PO SCH (14:26)
[2022-12-06] MEDS: Atorvastatin Calcium 40 MG TAB PO SCH (20:58)
[2022-12-06 21:46] LABS: ALT (SGPT) 32 U/L (8-55)
[2022-12-07] MEDS: Ipratropium/Albuterol 3 ML NEB NEB SCH ×4 (06:01→21:22)
[2022-12-07] MEDS: Mometasone/Formoterol 200/5 60 PUFF INH SCH ×2 (06:03→18:06)
[2022-12-07] MEDS: metFORMIN 500 MG TAB PO SCH ×2 (08:23→17:24)
[2022-12-07] MEDS: Empagliflozin 10 MG TAB PO SCH (08:23)
[2022-12-07] MEDS: Torsemide 20 MG TAB PO SCH ×2 (08:23→14:09)
[2022-12-07] MEDS: Dronedarone HCl 400 MG TAB PO SCH ×2 (08:23→21:27)
[2022-12-07] MEDS: carBAMazepine 200 MG TAB PO SCH ×2 (08:23→21:25)
[2022-12-07] MEDS: Benzonatate 100 MG CAP PO SCH ×3 (08:23→21:27)
[2022-12-07] MEDS: Amlodipine 5 MG TAB PO SCH (08:24)
[2022-12-07] MEDS: Ezetimibe 10 MG TAB PO SCH (08:24)
[2022-12-07] MEDS: Folic Acid 1 MG TAB PO SCH (08:24)
[2022-12-07] MEDS: Enoxaparin 120 MG/0.8 ML SYRINGE SC SCH ×2 (08:25→21:27)
[2022-12-07] MEDS: Famotidine 20 MG TAB PO SCH ×2 (08:25→21:27)
[2022-12-07] MEDS: Gabapentin 300 MG CAP PO SCH ×3 (08:27→21:26)
[2022-12-07] MEDS: ZONISAMIDE 100 MG PO SCH (08:34)
[2022-12-07] MEDS: Acetaminophen 325 MG TAB PO PRN (14:11)
[2022-12-07] MEDS: Atorvastatin Calcium 40 MG TAB PO SCH (21:26)
[2022-12-07] MEDS: Metoprolol Tartrate 25 MG TAB PO SCH (21:27)
[2022-12-07] MEDS: Zonisamide 100 MG CAP PO SCH (21:27)
[2022-12-08] MEDS: Mometasone/Formoterol 200/5 60 PUFF INH SCH ×2 (06:39→18:32)
[2022-12-08] MEDS: Ipratropium/Albuterol 3 ML NEB NEB SCH ×4 (08:12→18:35)
[2022-12-08] MEDS: metFORMIN 500 MG TAB PO SCH ×2 (08:17→17:13)
[2022-12-08] MEDS: Dronedarone HCl 400 MG TAB PO SCH ×2 (08:18→21:13)
[2022-12-08] MEDS: Torsemide 20 MG TAB PO SCH ×2 (08:18→14:49)
[2022-12-08] MEDS: Benzonatate 100 MG CAP PO SCH ×3 (08:18→21:13)
[2022-12-08] MEDS: Famotidine 20 MG TAB PO SCH ×2 (08:18→21:12)
[2022-12-08] MEDS: Gabapentin 300 MG CAP PO SCH ×3 (08:19→21:13)
[2022-12-08] MEDS: Amlodipine 5 MG TAB PO SCH (08:19)
[2022-12-08] MEDS: Metoprolol Tartrate 25 MG TAB PO SCH ×2 (08:20→21:12)
[2022-12-08] MEDS: carBAMazepine 200 MG TAB PO SCH ×2 (08:24→21:12)
[2022-12-08] MEDS: Zonisamide 100 MG CAP PO SCH ×2 (08:24→21:12)
[2022-12-08] MEDS: Empagliflozin 10 MG TAB PO SCH (08:25)
[2022-12-08] MEDS: Ezetimibe 10 MG TAB PO SCH (08:26)
[2022-12-08] MEDS: Folic Acid 1 MG TAB PO SCH (08:26)
[2022-12-08] MEDS: Acetaminophen 325 MG TAB PO PRN (08:26)
[2022-12-08] MEDS: Enoxaparin 120 MG/0.8 ML SYRINGE SC SCH ×2 (08:27→21:12)
[2022-12-08] MEDS: Atorvastatin Calcium 40 MG TAB PO SCH (21:12)
[2022-12-09 05:21] LABS: Hemoglobin 8.3 g/dL (14.0-18.0); Red Blood Cell (RBC) Count 2.31 mill/uL (4.70-6.10); White Blood Cell (WBC) Count 6.2 10x3/uL (4.8-10.8)
[2022-12-09 05:22] LABS: #Basophils 0.1 thou/uL (0.0-0.2); #Lymphocytes 1.1 thou/uL (1.20-3.40); #Monocytes 0.7 thou/uL (0.11-0.59); #Neutrophils 4.4 thou/uL (1.40-6.50); %Basophils 1.8 % (0.0-1.0); %Eosinophils 0.3 % (0.0-10.0); %Lymphocytes 17.6 % (21.0-51.0); %Monocytes 10.5 % (0.0-10.0); Hematocrit 26.1 % (42.0-52.0); Mean Corpuscular HGB CONC 31.9 g/dL (32.0-36.0); Mean Corpuscular Hemoglobin 36.1 pg (27.0-31.0); Mean Platelet Volume 9.1 fL (7.4-10.4); Platelet Count 129 10x3/uL (130-400); RBC Distribution Width 16.6 % (11.5-14.5)
[2022-12-09 05:25] LABS: BUN (Urea Nitrogen) 23 mg/dL (8.4-25.7); Calc. Creatinine Clearance 79 mL/min (70-130); Calcium 9.1 mg/dL (7.6-10.4); Carbon Dioxide 27 mmol/L (23-31); Chloride 97 mmol/L (98-107); Estimated GFR 54; Glucose 118 mg/dL (80-115); Potassium 4.2 mmol/L (3.5-5.1); Sodium 136 mmol/L (136-145)
[2022-12-09] MEDS: Ipratropium/Albuterol 3 ML NEB NEB SCH ×4 (06:22→17:43)
[2022-12-09] MEDS: Mometasone/Formoterol 200/5 60 PUFF INH SCH ×2 (06:23→17:42)
[2022-12-09] MEDS: Metoprolol Tartrate 25 MG TAB PO SCH ×2 (08:53→21:38)
[2022-12-09] MEDS: Zonisamide 100 MG CAP PO SCH ×2 (08:53→21:35)
[2022-12-09] MEDS: Benzonatate 100 MG CAP PO SCH ×3 (08:54→21:39)
[2022-12-09] MEDS: metFORMIN 500 MG TAB PO SCH ×2 (08:54→17:09)
[2022-12-09] MEDS: carBAMazepine 200 MG TAB PO SCH ×2 (08:54→21:35)
[2022-12-09] MEDS: Ezetimibe 10 MG TAB PO SCH (08:54)
[2022-12-09] MEDS: Folic Acid 1 MG TAB PO SCH (08:54)
[2022-12-09] MEDS: Amlodipine 5 MG TAB PO SCH ×2 (08:55→10:28)
[2022-12-09] MEDS: Gabapentin 300 MG CAP PO SCH ×3 (08:56→21:36)
[2022-12-09] MEDS: Famotidine 20 MG TAB PO SCH ×2 (08:56→21:37)
[2022-12-09] MEDS: Torsemide 20 MG TAB PO SCH ×2 (08:56→13:51)
[2022-12-09] MEDS: Dronedarone HCl 400 MG TAB PO SCH ×2 (08:57→21:35)
[2022-12-09] MEDS: Enoxaparin 120 MG/0.8 ML SYRINGE SC SCH ×2 (08:57→21:35)
[2022-12-09] MEDS: Empagliflozin 10 MG TAB PO SCH (08:57)
[2022-12-09] MEDS: HumaLOG 300 UNITS/3 ML VIAL SC PRN (17:10)
[2022-12-09] MEDS: Atorvastatin Calcium 40 MG TAB PO SCH (21:39)
[2022-12-10] MEDS: Mometasone/Formoterol 200/5 60 PUFF INH SCH ×2 (05:57→18:20)
[2022-12-10] MEDS: Ipratropium/Albuterol 3 ML NEB NEB SCH ×4 (05:57→18:22)
[2022-12-10] MEDS: carBAMazepine 200 MG TAB PO SCH ×2 (08:34→21:29)
[2022-12-10] MEDS: Gabapentin 300 MG CAP PO SCH ×3 (08:35→21:28)
[2022-12-10] MEDS: Famotidine 20 MG TAB PO SCH ×2 (08:36→21:29)
[2022-12-10] MEDS: Zonisamide 100 MG CAP PO SCH ×2 (08:36→21:29)
[2022-12-10] MEDS: Amlodipine 5 MG TAB PO SCH (08:36)
[2022-12-10] MEDS: Folic Acid 1 MG TAB PO SCH (08:36)
[2022-12-10] MEDS: Ezetimibe 10 MG TAB PO SCH (08:36)
[2022-12-10] MEDS: Metoprolol Tartrate 25 MG TAB PO SCH ×2 (08:37→21:29)
[2022-12-10] MEDS: metFORMIN 500 MG TAB PO SCH ×2 (08:37→17:25)
[2022-12-10] MEDS: Torsemide 20 MG TAB PO SCH ×2 (08:37→14:45)
[2022-12-10] MEDS: Enoxaparin 120 MG/0.8 ML SYRINGE SC SCH ×2 (08:37→21:28)
[2022-12-10] MEDS: Benzonatate 100 MG CAP PO SCH ×3 (08:37→21:29)
[2022-12-10] MEDS: Dronedarone HCl 400 MG TAB PO SCH ×2 (08:37→21:28)
[2022-12-10] MEDS: Guaifenesin DM 100-10/5 ML UDCUP PO PRN (08:43)
[2022-12-10] MEDS: Acetaminophen/Codeine 30-300mg Tablet PO PRN ×2 (08:43→15:21)
[2022-12-10] MEDS: Empagliflozin 10 MG TAB PO SCH (09:44)
[2022-12-10] MEDS ORDERED: Ipratropium/Albuterol 3 ML NEB ONE (17:54)
[2022-12-10] MEDS: Atorvastatin Calcium 40 MG TAB PO SCH (21:29)
[2022-12-11] MEDS: Mometasone/Formoterol 200/5 60 PUFF INH SCH ×2 (06:07→18:29)
[2022-12-11] MEDS: Ipratropium/Albuterol 3 ML NEB NEB SCH ×4 (06:07→18:27)
[2022-12-11] MEDS: Enoxaparin 120 MG/0.8 ML SYRINGE SC SCH ×2 (08:30→20:57)
[2022-12-11] MEDS: Folic Acid 1 MG TAB PO SCH (08:31)
[2022-12-11] MEDS: carBAMazepine 200 MG TAB PO SCH ×2 (08:31→20:58)
[2022-12-11] MEDS: Zonisamide 100 MG CAP PO SCH ×2 (08:31→20:58)
[2022-12-11] MEDS: Torsemide 20 MG TAB PO SCH ×2 (08:31→14:52)
[2022-12-11] MEDS: Amlodipine 5 MG TAB PO SCH (08:31)
[2022-12-11] MEDS: Famotidine 20 MG TAB PO SCH ×2 (08:32→20:58)
[2022-12-11] MEDS: Gabapentin 300 MG CAP PO SCH ×3 (08:32→20:58)
[2022-12-11] MEDS: Empagliflozin 10 MG TAB PO SCH (08:32)
[2022-12-11] MEDS: metFORMIN 500 MG TAB PO SCH ×2 (08:33→16:53)
[2022-12-11] MEDS: Dronedarone HCl 400 MG TAB PO SCH ×2 (08:33→21:00)
[2022-12-11] MEDS: Metoprolol Tartrate 25 MG TAB PO SCH ×2 (08:33→20:59)
[2022-12-11] MEDS: Benzonatate 100 MG CAP PO SCH ×3 (08:33→21:00)
[2022-12-11] MEDS: Ezetimibe 10 MG TAB PO SCH (08:33)
[2022-12-11] MEDS: Acetaminophen/Codeine 30-300mg Tablet PO PRN ×2 (08:36→15:04)
[2022-12-11] MEDS: predniSONE 20 MG TAB PO SCH (16:53)
[2022-12-11] MEDS: Atorvastatin Calcium 40 MG TAB PO SCH (21:00)
[2022-12-12] MEDS: Ipratropium/Albuterol 3 ML NEB NEB SCH ×4 (06:12→18:23)
[2022-12-12] MEDS: Mometasone/Formoterol 200/5 60 PUFF INH SCH ×2 (06:12→18:21)
[2022-12-12] MEDS: predniSONE 20 MG TAB PO SCH ×2 (08:22→16:46)
[2022-12-12] MEDS: metFORMIN 500 MG TAB PO SCH ×2 (08:22→16:46)
[2022-12-12] MEDS: Metoprolol Tartrate 25 MG TAB PO SCH ×2 (08:22→21:12)
[2022-12-12] MEDS: carBAMazepine 200 MG TAB PO SCH ×2 (08:23→21:12)
[2022-12-12] MEDS: Torsemide 20 MG TAB PO SCH ×2 (08:23→14:24)
[2022-12-12] MEDS: Ezetimibe 10 MG TAB PO SCH (08:23)
[2022-12-12] MEDS: Famotidine 20 MG TAB PO SCH ×2 (08:23→21:12)
[2022-12-12] MEDS: Empagliflozin 10 MG TAB PO SCH (08:23)
[2022-12-12] MEDS: Folic Acid 1 MG TAB PO SCH (08:24)
[2022-12-12] MEDS: Gabapentin 300 MG CAP PO SCH ×3 (08:24→21:13)
[2022-12-12] MEDS: Benzonatate 100 MG CAP PO SCH ×3 (08:24→21:12)
[2022-12-12] MEDS: Dronedarone HCl 400 MG TAB PO SCH ×2 (08:24→21:12)
[2022-12-12] MEDS: Zonisamide 100 MG CAP PO SCH ×2 (08:24→21:12)
[2022-12-12] MEDS: Amlodipine 5 MG TAB PO SCH (08:24)
[2022-12-12] MEDS: Enoxaparin 120 MG/0.8 ML SYRINGE SC SCH ×2 (08:25→21:11)
[2022-12-12] MEDS: HumaLOG 300 UNITS/3 ML VIAL SC PRN (18:19)
[2022-12-12] MEDS: Atorvastatin Calcium 40 MG TAB PO SCH (21:12)
[2022-12-13] MEDS: Mometasone/Formoterol 200/5 60 PUFF INH SCH ×2 (05:52→17:55)
[2022-12-13 06:16] LABS: #Basophils 0.1 thou/uL (0.0-0.2); #Lymphocytes 0.8 thou/uL (1.20-3.40); #Monocytes 0.5 thou/uL (0.11-0.59); %Basophils 2.4 % (0.0-1.0); %Eosinophils 0.2 % (0.0-10.0); %Lymphocytes 15.1 % (21.0-51.0); %Monocytes 8.9 % (0.0-10.0); %Neutrophils 73.5 % (42.0-75.0); Hematocrit 23.4 % (42.0-52.0); Hemoglobin 7.3 g/dL (14.0-18.0); Mean Corpuscular Hemoglobin 34.9 pg (27.0-31.0); Platelet Count 117 10x3/uL (130-400); RBC Distribution Width 16.3 % (11.5-14.5); Red Blood Cell (RBC) Count 2.08 mill/uL (4.70-6.10); White Blood Cell (WBC) Count 5.5 10x3/uL (4.8-10.8)
[2022-12-13 06:17] LABS: Anion Gap 12 mmol/L (10-20); BUN (Urea Nitrogen) 33 mg/dL (8.4-25.7); Calc. Creatinine Clearance 85 mL/min (70-130); Calcium 8.4 mg/dL (7.8-10.44); Carbon Dioxide 27 mmol/L (23-31); Chloride 97 mmol/L (98-107); Estimated GFR 59; Glucose 147 mg/dL (80-115); Potassium 4.2 mmol/L (3.5-5.1); Sodium 132 mmol/L (136-145)
[2022-12-13] MEDS: Ipratropium/Albuterol 3 ML NEB NEB SCH ×5 (08:27→20:46)
[2022-12-13] MEDS: Zonisamide 100 MG CAP PO SCH ×2 (08:31→20:43)
[2022-12-13] MEDS: carBAMazepine 200 MG TAB PO SCH ×2 (08:32→20:43)
[2022-12-13] MEDS: Metoprolol Tartrate 25 MG TAB PO SCH ×2 (08:33→20:44)
[2022-12-13] MEDS: predniSONE 20 MG TAB PO SCH ×2 (08:33→17:53)
[2022-12-13] MEDS: metFORMIN 500 MG TAB PO SCH ×2 (08:33→15:26)
[2022-12-13] MEDS: Dronedarone HCl 400 MG TAB PO SCH ×2 (08:34→20:45)
[2022-12-13] MEDS: Gabapentin 300 MG CAP PO SCH ×3 (08:34→20:45)
[2022-12-13] MEDS: Torsemide 20 MG TAB PO SCH ×2 (08:35→15:26)
[2022-12-13] MEDS: Famotidine 20 MG TAB PO SCH ×2 (08:35→20:43)
[2022-12-13] MEDS: Benzonatate 100 MG CAP PO SCH ×3 (08:35→20:44)
[2022-12-13] MEDS: Amlodipine 5 MG TAB PO SCH (08:35)
[2022-12-13] MEDS: Ezetimibe 10 MG TAB PO SCH (08:36)
[2022-12-13] MEDS: Folic Acid 1 MG TAB PO SCH (08:36)
[2022-12-13] MEDS: Empagliflozin 10 MG TAB PO SCH (08:36)
[2022-12-13] MEDS: Enoxaparin 120 MG/0.8 ML SYRINGE SC SCH (09:42)
[2022-12-13] MEDS: Guaifenesin DM 100-10/5 ML UDCUP PO PRN (11:12)
[2022-12-13] MEDS: Acetaminophen 325 MG TAB PO PRN (11:19)
[2022-12-13] MEDS: HumaLOG 300 UNITS/3 ML VIAL SC PRN ×2 (12:33→17:54)
[2022-12-13] MEDS ORDERED: Ipratropium/Albuterol 3 ML NEB NEB SCH ×2 (18:30)
[2022-12-13] MEDS: Atorvastatin Calcium 40 MG TAB PO SCH (20:43)
[2022-12-14] MEDS: Ipratropium/Albuterol 3 ML NEB NEB SCH ×6 (01:06→20:53)
[2022-12-14] MEDS: Mometasone/Formoterol 200/5 60 PUFF INH SCH ×2 (06:03→17:09)
[2022-12-14 06:17] LABS: Anion Gap 12 mmol/L (10-20); BUN (Urea Nitrogen) 31 mg/dL (8.4-25.7); Calcium 8.6 mg/dL (7.8-10.44); Carbon Dioxide 29 mmol/L (23-31); Chloride 98 mmol/L (98-107); Glucose 137 mg/dL (80-115)
[2022-12-14 06:20] LABS: #Basophils 0.1 thou/uL (0.0-0.2); #Lymphocytes 0.8 thou/uL (1.20-3.40); #Monocytes 0.5 thou/uL (0.11-0.59); #Neutrophils 3.3 thou/uL (1.40-6.50); %Basophils 1.8 % (0.0-1.0); %Eosinophils 0.4 % (0.0-10.0); %Monocytes 11.1 % (0.0-10.0); %Neutrophils 70.8 % (42.0-75.0); Hematocrit 22.4 % (42.0-52.0); Hemoglobin 7.1 g/dL (14.0-18.0); Mean Corpuscular HGB CONC 31.8 g/dL (32.0-36.0); Mean Corpuscular Hemoglobin 35.4 pg (27.0-31.0); Mean Platelet Volume 8.7 fL (7.4-10.4); Platelet Count 123 10x3/uL (130-400); RBC Distribution Width 16.1 % (11.5-14.5); Red Blood Cell (RBC) Count 2.02 mill/uL (4.70-6.10); White Blood Cell (WBC) Count 4.7 10x3/uL (4.8-10.8)
[2022-12-14 06:27] LABS: Calc. Creatinine Clearance 90 mL/min (70-130); Estimated GFR 63; Potassium 4.2 mmol/L (3.5-5.1); Sodium 135 mmol/L (136-145)
[2022-12-14] MEDS: carBAMazepine 200 MG TAB PO SCH ×2 (08:21→20:56)
[2022-12-14] MEDS: Torsemide 20 MG TAB PO SCH ×2 (08:21→14:59)
[2022-12-14] MEDS: Zonisamide 100 MG CAP PO SCH ×2 (08:22→20:56)
[2022-12-14] MEDS: Dronedarone HCl 400 MG TAB PO SCH ×2 (08:23→20:56)
[2022-12-14] MEDS: Metoprolol Tartrate 25 MG TAB PO SCH ×2 (08:23→20:55)
[2022-12-14] MEDS: Benzonatate 100 MG CAP PO SCH ×3 (08:24→20:56)
[2022-12-14] MEDS: metFORMIN 500 MG TAB PO SCH ×2 (08:24→17:05)
[2022-12-14] MEDS: Amlodipine 5 MG TAB PO SCH (08:26)
[2022-12-14] MEDS: predniSONE 20 MG TAB PO SCH ×2 (08:26→17:05)
[2022-12-14] MEDS: Ezetimibe 10 MG TAB PO SCH (08:26)
[2022-12-14] MEDS: Famotidine 20 MG TAB PO SCH ×2 (08:26→20:54)
[2022-12-14] MEDS: Gabapentin 300 MG CAP PO SCH ×3 (08:27→20:56)
[2022-12-14] MEDS: Empagliflozin 10 MG TAB PO SCH (08:27)
[2022-12-14] MEDS: Folic Acid 1 MG TAB PO SCH (08:27)
[2022-12-14] MEDS: HumaLOG 300 UNITS/3 ML VIAL SC PRN (17:11)
[2022-12-14] MEDS: Atorvastatin Calcium 40 MG TAB PO SCH (20:56)
[2022-12-15] MEDS: Ipratropium/Albuterol 3 ML NEB NEB SCH ×6 (01:16→20:21)
[2022-12-15] MEDS: Acetaminophen 325 MG TAB PO PRN (05:12)
[2022-12-15] MEDS: Mometasone/Formoterol 200/5 60 PUFF INH SCH ×2 (06:12→18:33)
[2022-12-15] MEDS: HumaLOG 300 UNITS/3 ML VIAL SC PRN ×2 (06:16→16:27)
[2022-12-15 06:20] LABS: #Basophils 0.2 thou/uL (0.0-0.2); #Lymphocytes 0.9 thou/uL (1.20-3.40); #Monocytes 0.5 thou/uL (0.11-0.59); #Neutrophils 4.7 thou/uL (1.40-6.50); %Eosinophils 0.1 % (0.0-10.0); %Lymphocytes 14.7 % (21.0-51.0); %Monocytes 8.3 % (0.0-10.0); Hematocrit 26.8 % (42.0-52.0); Hemoglobin 8.5 g/dL (14.0-18.0); Mean Corpuscular HGB CONC 31.6 g/dL (32.0-36.0); Mean Corpuscular Hemoglobin 34.7 pg (27.0-31.0); Mean Platelet Volume 8.2 fL (7.4-10.4); Platelet Count 120 10x3/uL (130-400); RBC Distribution Width 18.7 % (11.5-14.5); Red Blood Cell (RBC) Count 2.44 mill/uL (4.70-6.10); White Blood Cell (WBC) Count 6.4 10x3/uL (4.8-10.8)
[2022-12-15 06:28] LABS: Anion Gap 14 mmol/L (10-20); BUN (Urea Nitrogen) 31 mg/dL (8.4-25.7); Calc. Creatinine Clearance 74 mL/min (70-130); Calcium 8.5 mg/dL (7.8-10.44); Carbon Dioxide 28 mmol/L (23-31); Chloride 95 mmol/L (98-107); Estimated GFR 50; Glucose 161 mg/dL (80-115); Potassium 4.6 mmol/L (3.5-5.1); Sodium 132 mmol/L (136-145)
[2022-12-15] MEDS: carBAMazepine 200 MG TAB PO SCH ×2 (07:59→20:20)
[2022-12-15] MEDS: metFORMIN 500 MG TAB PO SCH ×2 (08:00→16:25)
[2022-12-15] MEDS: Benzonatate 100 MG CAP PO SCH ×3 (08:00→20:20)
[2022-12-15] MEDS: Amlodipine 5 MG TAB PO SCH (08:00)
[2022-12-15] MEDS: Ezetimibe 10 MG TAB PO SCH (08:00)
[2022-12-15] MEDS: Gabapentin 300 MG CAP PO SCH ×3 (08:00→20:20)
[2022-12-15] MEDS: predniSONE 20 MG TAB PO SCH ×2 (08:00→16:25)
[2022-12-15] MEDS: Torsemide 20 MG TAB PO SCH ×2 (08:01→14:20)
[2022-12-15] MEDS: Metoprolol Tartrate 25 MG TAB PO SCH ×2 (08:01→20:20)
[2022-12-15] MEDS: Zonisamide 100 MG CAP PO SCH ×2 (08:01→20:20)
[2022-12-15] MEDS: Famotidine 20 MG TAB PO SCH ×2 (08:01→20:20)
[2022-12-15] MEDS: Folic Acid 1 MG TAB PO SCH (08:01)
[2022-12-15] MEDS: Empagliflozin 10 MG TAB PO SCH (08:01)
[2022-12-15] MEDS: Dronedarone HCl 400 MG TAB PO SCH ×2 (08:01→20:20)
[2022-12-15] MEDS ORDERED: Metoprolol Tartrate 25 MG TAB PO SCH (10:30)
[2022-12-15] MEDS: Atorvastatin Calcium 40 MG TAB PO SCH (20:20)
[2022-12-16] MEDS: Ipratropium/Albuterol 3 ML NEB NEB SCH ×6 (01:00→21:00)
[2022-12-16] MEDS: Mometasone/Formoterol 200/5 60 PUFF INH SCH ×2 (06:02→17:26)
[2022-12-16 06:32] LABS: #Basophils 0.2 thou/uL (0.0-0.2); #Monocytes 0.6 thou/uL (0.11-0.59); #Neutrophils 5.5 thou/uL (1.40-6.50); %Basophils 2.3 % (0.0-1.0); %Eosinophils 0.3 % (0.0-10.0); %Lymphocytes 14.1 % (21.0-51.0); %Monocytes 8.4 % (0.0-10.0); Hematocrit 26.8 % (42.0-52.0); Hemoglobin 8.4 g/dL (14.0-18.0); Mean Corpuscular HGB CONC 31.2 g/dL (32.0-36.0); Mean Corpuscular Hemoglobin 34.2 pg (27.0-31.0); Mean Platelet Volume 8.2 fL (7.4-10.4); Platelet Count 128 10x3/uL (130-400); Red Blood Cell (RBC) Count 2.45 mill/uL (4.70-6.10); White Blood Cell (WBC) Count 7.4 10x3/uL (4.8-10.8)
[2022-12-16 06:33] LABS: Anion Gap 13 mmol/L (10-20); BUN (Urea Nitrogen) 34 mg/dL (8.4-25.7); Calc. Creatinine Clearance 75 mL/min (70-130); Calcium 8.5 mg/dL (7.8-10.44); Carbon Dioxide 29 mmol/L (23-31); Chloride 95 mmol/L (98-107); Estimated GFR 51; Glucose 136 mg/dL (80-115); Potassium 4.3 mmol/L (3.5-5.1); Sodium 133 mmol/L (136-145)
[2022-12-16] MEDS: Torsemide 20 MG TAB PO SCH ×2 (08:14→13:13)
[2022-12-16] MEDS: Empagliflozin 10 MG TAB PO SCH (08:15)
[2022-12-16] MEDS: Zonisamide 100 MG CAP PO SCH ×2 (08:15→20:59)
[2022-12-16] MEDS: Folic Acid 1 MG TAB PO SCH (08:16)
[2022-12-16] MEDS: Gabapentin 300 MG CAP PO SCH ×3 (08:16→20:59)
[2022-12-16] MEDS: Metoprolol Tartrate 25 MG TAB PO SCH ×2 (08:16→20:58)
[2022-12-16] MEDS: Famotidine 20 MG TAB PO SCH ×2 (08:16→20:59)
[2022-12-16] MEDS: predniSONE 20 MG TAB PO SCH ×2 (08:16→16:20)
[2022-12-16] MEDS: Dronedarone HCl 400 MG TAB PO SCH ×2 (08:16→20:58)
[2022-12-16] MEDS: carBAMazepine 200 MG TAB PO SCH ×2 (08:16→20:59)
[2022-12-16] MEDS: Benzonatate 100 MG CAP PO SCH ×3 (08:16→20:59)
[2022-12-16] MEDS: Ezetimibe 10 MG TAB PO SCH (08:16)
[2022-12-16] MEDS: metFORMIN 500 MG TAB PO SCH ×2 (08:16→16:20)
[2022-12-16] MEDS: HumaLOG 300 UNITS/3 ML VIAL SC PRN (11:40)
[2022-12-16] MEDS: Atorvastatin Calcium 40 MG TAB PO SCH (20:58)
[2022-12-17] MEDS: Ipratropium/Albuterol 3 ML NEB NEB SCH ×6 (01:12→20:32)
[2022-12-17] MEDS: Mometasone/Formoterol 200/5 60 PUFF INH SCH ×2 (06:32→17:18)
[2022-12-17] MEDS: Empagliflozin 10 MG TAB PO SCH (08:28)
[2022-12-17] MEDS: Benzonatate 100 MG CAP PO SCH ×3 (08:28→20:31)
[2022-12-17] MEDS: Folic Acid 1 MG TAB PO SCH (08:28)
[2022-12-17] MEDS: Zonisamide 100 MG CAP PO SCH ×2 (08:28→20:31)
[2022-12-17] MEDS: Ezetimibe 10 MG TAB PO SCH (08:28)
[2022-12-17] MEDS: carBAMazepine 200 MG TAB PO SCH ×2 (08:28→20:32)
[2022-12-17] MEDS: Gabapentin 300 MG CAP PO SCH ×3 (08:28→20:31)
[2022-12-17] MEDS: Dronedarone HCl 400 MG TAB PO SCH ×2 (08:28→20:31)
[2022-12-17] MEDS: Torsemide 20 MG TAB PO SCH ×2 (08:28→13:57)
[2022-12-17] MEDS: metFORMIN 500 MG TAB PO SCH ×2 (08:28→17:08)
[2022-12-17] MEDS: Metoprolol Tartrate 25 MG TAB PO SCH ×2 (08:29→20:33)
[2022-12-17] MEDS: Famotidine 20 MG TAB PO SCH ×2 (08:55→20:31)
[2022-12-17] MEDS: Acetaminophen 325 MG TAB PO PRN ×2 (08:55→13:59)
[2022-12-17] MEDS: Atorvastatin Calcium 40 MG TAB PO SCH (20:31)
[2022-12-17] MEDS: Guaifenesin DM 100-10/5 ML UDCUP PO PRN (22:10)
[2022-12-18] MEDS: Acetaminophen/Codeine 30-300mg Tablet PO PRN (01:33)
[2022-12-18] MEDS: Ipratropium/Albuterol 3 ML NEB NEB SCH ×6 (01:34→20:26)
[2022-12-18] MEDS: Mometasone/Formoterol 200/5 60 PUFF INH SCH ×2 (06:20→17:59)
[2022-12-18 06:24] LABS: #Basophils 0.4 thou/uL (0.0-0.2); %Eosinophils 0.1 % (0.0-10.0); %Lymphocytes 10.9 % (21.0-51.0); Hemoglobin 8.7 g/dL (14.0-18.0); Mean Corpuscular HGB CONC 31.1 g/dL (32.0-36.0); Mean Corpuscular Hemoglobin 34.4 pg (27.0-31.0); Mean Platelet Volume 8.2 fL (7.4-10.4); Platelet Count 117 10x3/uL (130-400); RBC Distribution Width 18.8 % (11.5-14.5); Red Blood Cell (RBC) Count 2.53 mill/uL (4.70-6.10); White Blood Cell (WBC) Count 8.8 10x3/uL (4.8-10.8)
[2022-12-18 06:30] LABS: %Basophils 4.6 % (0.0-1.0); %Monocytes 7.4 % (0.0-10.0); Anion Gap 14 mmol/L (10-20); BUN (Urea Nitrogen) 32 mg/dL (8.4-25.7); Calc. Creatinine Clearance 80 mL/min (70-130); Calcium 8.5 mg/dL (7.8-10.44); Carbon Dioxide 26 mmol/L (23-31); Chloride 98 mmol/L (98-107); Estimated GFR 54; Glucose 126 mg/dL (83-110); Potassium 4.2 mmol/L (3.5-5.1); Sodium 134 mmol/L (136-145)
[2022-12-18 06:31] LABS: #Monocytes 0.7 thou/uL (0.11-0.59); #Neutrophils 6.8 thou/uL (1.40-6.50)
[2022-12-18] MEDS: Dronedarone HCl 400 MG TAB PO SCH ×2 (08:06→21:24)
[2022-12-18] MEDS: Metoprolol Tartrate 25 MG TAB PO SCH ×2 (08:06→21:25)
[2022-12-18] MEDS: Famotidine 20 MG TAB PO SCH ×2 (08:06→21:25)
[2022-12-18] MEDS: Empagliflozin 10 MG TAB PO SCH (08:06)
[2022-12-18] MEDS: carBAMazepine 200 MG TAB PO SCH ×2 (08:06→21:24)
[2022-12-18] MEDS: Folic Acid 1 MG TAB PO SCH (08:06)
[2022-12-18] MEDS: Zonisamide 100 MG CAP PO SCH ×2 (08:06→21:23)
[2022-12-18] MEDS: Benzonatate 100 MG CAP PO SCH ×3 (08:06→21:24)
[2022-12-18] MEDS: Gabapentin 300 MG CAP PO SCH ×3 (08:06→21:25)
[2022-12-18] MEDS: metFORMIN 500 MG TAB PO SCH ×2 (08:06→16:48)
[2022-12-18] MEDS: Ezetimibe 10 MG TAB PO SCH (08:06)
[2022-12-18] MEDS: Torsemide 20 MG TAB PO SCH ×2 (08:06→14:10)
[2022-12-18 10:36] VITALS: BMI 33.8
[2022-12-18] MEDS: Acetaminophen 325 MG TAB PO PRN (14:12)
[2022-12-18] MEDS: HumaLOG 300 UNITS/3 ML VIAL SC PRN (16:48)
[2022-12-18] MEDS: Atorvastatin Calcium 40 MG TAB PO SCH (21:25)
[2022-12-19] MEDS: Ipratropium/Albuterol 3 ML NEB NEB SCH ×3 (01:47→08:05)
[2022-12-19] MEDS: Guaifenesin DM 100-10/5 ML UDCUP PO PRN (04:33)
[2022-12-19] MEDS: Mometasone/Formoterol 200/5 60 PUFF INH SCH (05:46)
[2022-12-19] MEDS: metFORMIN 500 MG TAB PO SCH (07:38)
[2022-12-19] MEDS: Dronedarone HCl 400 MG TAB PO SCH (07:39)
[2022-12-19] MEDS: Zonisamide 100 MG CAP PO SCH (07:39)
[2022-12-19] MEDS: Famotidine 20 MG TAB PO SCH (07:39)
[2022-12-19] MEDS: Benzonatate 100 MG CAP PO SCH (07:39)
[2022-12-19] MEDS: Folic Acid 1 MG TAB PO SCH (07:39)
[2022-12-19] MEDS: Torsemide 20 MG TAB PO SCH (07:39)
[2022-12-19] MEDS: Gabapentin 300 MG CAP PO SCH (07:39)
[2022-12-19] MEDS: carBAMazepine 200 MG TAB PO SCH (07:39)
[2022-12-19] MEDS: Ezetimibe 10 MG TAB PO SCH (07:39)
[2022-12-19] MEDS: Metoprolol Tartrate 25 MG TAB PO SCH (07:49)
[2022-12-19 07:51] VITALS: BP 112/64; TEMP 97
[2022-12-19] MEDS: Empagliflozin 10 MG TAB PO SCH (08:05)
== END 2022-12-19 10:05 | disposition home health service (06) | DRG 947 ==
LOC: NAV ACUTE 16:52
PROVIDERS: ADMIT Family Medicine; ATTEND Family Medicine
PROC: 30233N1 Transfusion of Nonautologous Red Blood Cells into Peripheral Vein, Percutaneous Approach (ICD-10-PCS; principal; 2022-12-14)
DX: R53.81 Other malaise (principal); J96.21 Acute and chronic respiratory failure with hypoxia; I13.0 Hypertensive heart and chronic kidney disease with heart failure and stage 1 through stage 4 chronic kidney disease, or unspecified chronic kidney disease; J44.1 Chronic obstructive pulmonary disease with (acute) exacerbation; C34.90 Malignant neoplasm of unspecified part of unspecified bronchus or lung; I50.32 Chronic diastolic (congestive) heart failure; I48.0 Paroxysmal atrial fibrillation; G40.909 Epilepsy, unspecified, not intractable, without status epilepticus; D53.9 Nutritional anemia, unspecified; E78.5 Hyperlipidemia, unspecified; E11.22 Type 2 diabetes mellitus with diabetic chronic kidney disease; Z86.73 Personal history of transient ischemic attack (TIA), and cerebral infarction without residual deficits; I25.10 Atherosclerotic heart disease of native coronary artery without angina pectoris; N18.31 Chronic kidney disease, stage 3a; Z90.49 Acquired absence of other specified parts of digestive tract; Z90.89 Acquired absence of other organs; Z98.890 Other specified postprocedural states; Z82.49 Family history of ischemic heart disease and other diseases of the circulatory system; Z79.899 Other long term (current) drug therapy
CPT/HCPCS: 36415; 36416; 36430; 80048; 80053; 85025; 86850; 86900; 86901; 94640; 94664; J1650; J1815; J7512; J7620; P9016